=== PATIENT | male | born 1935 | race Caucasian/White ===

== ENCOUNTER 2018-12-06 13:29 | Observation (INO) | payer MEDICARE, OTHER ==
[2018-12-06] MEDS ORDERED: ASPIRIN 81 MG TABLET, CHEWABLE PO ONE (14:27)
--- NOTE | 2018-12-06 14:28 | ER Document Report ---
ED Medical Screen (RME) - General Chief Complaint: Chest Pain Stated Complaint: CHEST PAIN Time Seen by Provider: 12/06/18 14:23 Primary Care Provider: TONI BOYCE NP-C [Primary Care Provider] - Follow up as needed Notes: Chief complaint: Chest pain History of complain:( obtained from----patient) 83 years old male with a history of COPD on home oxygen at nighttime, woke up this morning with sharp substernal chest pain since then the pain is persistent but the intensity has decreased. The pain was not radiating to the left arm denies any numbness tingling sensation. Denies any nausea or vomiting. Currently feeling tightness in the chest. PHYSICAL EXAMINATION: GENERAL: Well-appearing, well-nourished and in no acute distress. HEAD: Atraumatic, normocephalic. EYES: Pupils equal round and reactive to light, extraocular movements intact, conjunctiva are normal. ENT: Nares patent, oropharynx clear without exudates. Moist mucous membranes. NECK: Normal range of motion, supple without lymphadenopathy LUNGS: Breath sounds clear to auscultation bilaterally and equal. No wheezes rales or rhonchi. HEART: Regular rate and rhythm without murmurs Dictation was performed using [employer] voice recognition software TRAVEL OUTSIDE OF THE [place] IN LAST 30 DAYS: No - Related Data Allergies/Adverse Reactions: Penicillins Allergy (Verified 12/06/18 13:31) tongue swells Past Medical History - Past Medical History Cardiac Medical History: Reports: Hx Hypertension Denies: Hx Heart Attack Pulmonary Medical History: Reports: Hx Asthma - copd Neurological Medical History: Denies: Hx Cerebrovascular Accident, Hx Seizures GI Medical History: Denies: Hx Hepatitis, Hx Hiatal Hernia, Hx Ulcer Infectious Medical History: Denies: Hx Hepatitis Past Surgical History: Reports: Hx Open Heart Surgery - monitor implanted to check for afib. Denies: Hx Pacemaker Physical Exam - Vital signs Vitals: Temp Pulse Resp BP Pulse Ox 99.9 F 104 H 20 115/63 92 12/06/18 13:47 12/06/18 13:47 12/06/18 13:47 12/06/18 13:47 12/06/18 13:47 Course - Vital Signs Vital signs: Temp Pulse Resp BP Pulse Ox 99.9 F 104 H 20 115/63 92 12/06/18 13:47 12/06/18 13:47 12/06/18 13:47 12/06/18 13:47 12/06/18 13:47 Doctor's Discharge - Discharge Referrals: TONI BOYCE NP-C [Primary Care Provider] - Follow up as needed
[2018-12-06 15:02] LABS: ABSOLUTE EOSINOPHILS # (AUTO) 0.2 10^3/uL (0.0-0.6); ABSOLUTE LYMPHOCYTES (AUTO) 0.6 10^3/uL (0.5-4.7); ABSOLUTE MONOCYTES (AUTO) 0.7 10^3/uL (0.1-1.4); ABSOLUTE NEUT (AUTO) 4.3 10^3/uL (1.7-8.2); BASOPHILS % (AUTO) 0.7 % (0-2); EOSINOPHILS % (AUTO) 3.9 % (0-6); HEMOGLOBIN 15.7 g/dL (13.5-17.0); LYMPHOCYTES % (AUTO) 9.8 % (13-45); MEAN CORPUSCULAR HEMOGLOBIN 30.5 pg (27.0-33.4); MEAN CORPUSCULAR HGB CONC 34.2 g/dL (32.0-36.0); MEAN CORPUSCULAR VOLUME 89 fl (80-97); MONOCYTES % (AUTO) 12.6 % (3-13); PLATELET COUNT 245 10^3/uL (150-450); RED BLOOD COUNT 5.15 10^6/uL (4.35-5.55); RED CELL DISTRIBUTION WIDTH 14.5 % (11.5-14.0); TOTAL CELLS COUNTED % (AUTO) 100 %; WHITE BLOOD COUNT 5.9 10^3/uL (4.0-10.5)
--- NOTE | 2018-12-06 15:17 | RADIOLOGY REPORT (SQ) ---
EXAM DESCRIPTION: CHEST SINGLE VIEW COMPLETED DATE/TIME: 12/06/2018 3:09 pm REASON FOR STUDY: Chest pain COMPARISON: Chest films 02/17/2011 EXAM PARAMETERS: NUMBER OF VIEWS: One view. TECHNIQUE: Single frontal radiographic view of the chest acquired. RADIATION DOSE: NA LIMITATIONS: None. FINDINGS: LUNGS AND PLEURA: Olena lines at both lung bases worrisome for fluid overload or intersti tial pulmonary edema. Upper lobes are hyperlucent from obstructive disease. No dense consolidation worrisome for pneumonia. No pleural effusion or pneumothorax. MEDIASTINUM AND HILAR STRUCTURES: No masses. Contour normal. HEART AND VASCULAR STRUCTURES: Heart normal in size. Normal vasculature. BONES: No acute findings. HARDWARE: Implanted cardiac monitoring device over the anterior left chest OTHER: No other significant finding. IMPRESSION: Olena lines at both lung bases, worrisome for fluid overload or congestive failure TECHNICAL DOCUMENTATION: JOB ID: [id number] [employer]- All Rights Reserved Reading location - IP/workstation name: [email or web address]
[2018-12-06 15:19] LABS: ALANINE AMINOTRANSFERASE 33 U/L (21-72); ALBUMIN 4.6 g/dL (3.5-5.0); ALKALINE PHOSPHATASE 121 U/L (38-126); ANION GAP 10 (5-19); ASPARTATE AMINO TRANSFERASE 26 U/L (17-59); BILIRUBIN,DIRECT 0.1 mg/dL (0.0-0.4); BILIRUBIN,TOTAL 0.9 mg/dL (0.2-1.3); BLOOD UREA NITROGEN 17 mg/dL (7-20); CALCIUM 9.8 mg/dL (8.4-10.2); CARBON DIOXIDE 30 mmol/L (22-30); CHLORIDE 103 mmol/L (98-107); CREATINE KINASE 73 U/L (55-170); GLUCOSE 102 mg/dL (75-110); POTASSIUM 4.9 mmol/L (3.6-5.0); SODIUM 142.8 mmol/L (137-145); TOTAL PROTEIN 7.7 g/dL (6.3-8.2)
[2018-12-06 15:49] LABS: CREATINE KINASE MB 1.58 ng/mL (<4.55); TROPONIN I < 0.012 ng/mL
--- NOTE | 2018-12-06 17:10 | ER Document Report ---
ED General - General Chief Complaint: Chest Pain Stated Complaint: CHEST PAIN Time Seen by Provider: 12/06/18 14:23 Primary Care Provider: TONI BOYCE NP-C [NO LOCAL MD] - Follow up as needed Notes: Patient is a 83-year-old male who presents emergency department with a chief complaint of chest pain. He states his chest pain started at 1:00 in the morning. The pain is in the center of his chest and describes it as a tightness. He has had an associated cough for the past few days. He went to urgent care and was brought here to the emergency department for further evaluation. He has a past medical history of COPD, GERD, congestive heart failure, hyperlipidemia, and CVA. Has been 2-3 years since his last stress test and that stress test was normal at the time. He also has an implanted monitor in his left chest to check for atrial fibrillation from a few years ago. He is on Prilosec, Lasix, Lipitor, Plavix, Anoro, Flovent, and home oxygen 2 L. TRAVEL OUTSIDE OF THE [place] IN LAST 30 DAYS: No - Related Data Allergies/Adverse Reactions: Penicillins Allergy (Verified 12/06/18 13:31) tongue swells Past Medical History - Social History Smoking Status: Former Smoker Frequency of alcohol use: None Drug Abuse: None Family History: Reviewed & Not Pertinent Patient has suicidal ideation: No Patient has homicidal ideation: No - Past Medical History Cardiac Medical History: Reports: Hx Hypertension Denies: Hx Heart Attack Pulmonary Medical History: Reports: Hx Asthma - copd, Hx COPD Neurological Medical History: Denies: Hx Cerebrovascular Accident, Hx Seizures Endocrine Medical History: Reports: Hx Diabetes Mellitus Type 2 - diet- controlled Renal/ Medical History: Denies: Hx Peritoneal Dialysis GI Medical History: Denies: Hx Hepatitis, Hx Hiatal Hernia, Hx Ulcer Infectious Medical History: Denies: Hx Hepatitis Past Surgical History: Reports: Hx Open Heart Surgery - monitor implanted to check for afib, Hx Tonsillectomy. Denies: Hx Pacemaker Review of Systems - Review of Systems Notes: REVIEW OF SYSTEMS: CONSTITUTIONAL : Denies recent illness. Denies recent unintentional weight loss. Denies fever, chills, or sweats. EENT: Denies eye, ear, throat, or mouth pain, discharge, or symptoms. Denies nasal or sinus congestion. CARDIOVASCULAR: See HPI RESPIRATORY: Denies shortness of breath, cough, congestion, difficulty breathing, or wheezing. GASTROINTESTINAL: Denies nausea, vomiting, and diarrhea. Denies abdominal pain. Denies constipation. GENITOURINARY: Denies difficulty urinating, burning, blood in urine, urgency or frequency. MUSCULOSKELETAL: Denies neck and back pain. Denies joint pain or swelling. SKIN: Denies rash, itchiness, or lesions HEMATOLOGIC : Denies easy bruising or bleeding. LYMPHATIC: Denies swollen, painful, enlarged glands. NEUROLOGICAL: Denies no numbness or tingling denies weakness. Denies headache. Denies altered mental status. Denies alteration in speech. PSYCHIATRIC: Denies stress, anxiety, alteration in sleep patterns, or depression. All other systems reviewed and negative. Physical Exam - Vital signs Vitals: Temp Pulse Resp BP Pulse Ox 99.9 F 104 H 20 115/63 92 12/06/18 13:47 12/06/18 13:47 12/06/18 13:47 12/06/18 13:47 12/06/18 13:47 - Notes Notes: PHYSICAL EXAMINATION: GENERAL: Appears well, healthy, well-nourished, no acute distress. HEAD: Normocephalic, atraumatic. EYES: PERRL, conjunctiva normal, all extraocular movements intact, sclera nonicteric ENT: Moist mucous membranes. NECK: Supple, no noticeable swelling, redness, rash. Normal range of motion. LUNGS: Equal breath sounds bilaterally and clear to auscultation. No wheezes rales or rhonchi. CARDIOVASCULAR: S1-S2, regular rate, regular rhythm. Radial pulses 2+, normal. ABDOMEN: Normoactive bowel sounds. Soft, nontender, no guarding, no rebound tenderness, and no masses palpated. EXTREMITIES: Normal strength and range of motion, no pitting or edema. No cyanosis. NEUROLOGICAL: Moves all extremities upon command. Strength 5/5 in all extremities. PSYCH: Normal mood, normal affect. SKIN: Warm, dry. No rash, lesions, ulcerations noted. Normal skin turgor. Course - Re-evaluation Re-evalutation: Differential diagnosis for the patient's chest pain includes ischemic chest pain (STEMI, NSTEMI, or unstable angina), pulmonary embolism, aortic dissection, pericarditis, chest wall pain. HEART Score: History:1 EK Age:2 Risk Factors:2 Troponin:0 Total: 5 12/06/18 17:20 Since patient does have crackles in bilateral bases, he will be given Lasix 10 mg IV. His labs are mostly unremarkable, except her his creatinine is 1.32, which is a mild increase from his normal. He also does show some pulmonary edema in bilateral lung robertson. The patient's heart score is a 5. I will also call Dr. Coates to admit the patient for a full cardiac workup. 12/06/18 18:[address] Coates and the patient will be admitted under the hospitalist service to telemetry. - Vital Signs Vital signs: Temp Pulse Resp BP Pulse Ox 99.9 F 104 H 20 115/63 96 12/06/18 13:47 12/06/18 13:47 12/06/18 17:03 12/06/18 13:47 12/06/18 17:03 - Laboratory Result Diagrams: 12/06/18 14:50 12/06/18 14:50 Laboratory results interpreted by me: 12/06/18 12/06/18 14:50 14:50 RDW 14.5 H Lymphocytes % 9.8 L Creatinine 1.32 H Est GFR (Non-Af Amer) 52 L - EKG Interpretation by Me Additional EKG results interpreted by me: 12/06/18 Sinus rhythm. Rate 87. ND 144; QRS 80; QT 312; QTC 376. Premature atrial contraction noted. Discharge - Discharge Clinical Impression: Pulmonary edema Qualifiers: Chronicity: acute Qualified Code(s): J81.0 - Acute pulmonary edema Chest pain Qualifiers: Chest pain type: other chest pain Qualified Code(s): R07.89 - Other chest pain Condition: Fair Disposition: ADMITTED INPATIENT Admitting Provider: Hospitalist Unit Admitted: Telemetry Referrals: TONI BOCYE NP-C [NO LOCAL MD] - Follow up as needed
[2018-12-06] MEDS ORDERED: FUROSEMIDE INJ/PF 20 MG/2 ML SDV IV ONE (17:17)
[2018-12-06] MEDS ORDERED: NITROGLYCERIN 0.4 MG/TAB 25 TAB/BOTTLE SL PRN (18:31)
[2018-12-06] MEDS ORDERED: (PENDING PHARMACY ID) (Clonazepam [Klonopin] 0.5 MG) PO PRN (18:32)
--- NOTE | 2018-12-06 19:03 | PDOC H&P ---
History of Present Illness Admission Date/PCP: 12/06/18 18:17 CASEY LOVING, [employer] CONSULTANT-C Patient complains of: chest pain History of Present Illness: SOCO RIBEIRO is a 83 year old male with a PMH of DM 2, hyperlipidemia, hypertension, and COPD on 2 lpm who presented with chest pain. Patient says he woke up at 1 AM earlier and had chest tightness, midsternal, 2- 3/10. nonradiating which lasted for 30 mins. He has chronic SOB from his COPD and denies acute worsening of his SOB. Denies dizziness, fever or chills. He is currently chest pain free and is comfortable. He is saturating well on his home O2 requirement. Past Medical History Cardiac Medical History: Reports: Hypertension Denies: Myocardial Infarction Pulmonary Medical History: Reports: Asthma - copd, Chronic Obstructive Pulmonary Disease (COPD) Neurological Medical History: Denies: Seizures Endocrine Medical History: Reports: Diabetes Mellitus Type 2 - diet-controlled GI Medical History: Denies: Hepatitis, Hiatal Hernia Hematology: Denies: Anemia, Sickle Cell Disease Past Surgical History Past Surgical History: Reports: Tonsillectomy Denies: Pacemaker Social History Smoking Status: Former Smoker Family History Family History: Reviewed & Not Pertinent Parental Family History Reviewed: Yes - dad had AL at 51 Children Family History Reviewed: No Sibling(s) Family History Reviewed.: No Medication/Allergy Home Medications: Atorvastatin Calcium [Lipitor 80 mg Tablet] 80 mg PO QHS 02/12/16 Carvedilol [Coreg 12.5 mg Tablet] 12.5 mg PO Q12 02/12/16 Clonazepam [Klonopin] 0.5 mg PO DAILY PRN 02/12/16 Clopidogrel Bisulfate [Plavix 75 mg Tablet] 75 mg PO DAILY 02/12/16 Furosemide [Lasix 40 mg Tablet] 40 mg PO QAM 02/12/16 Glimepiride [Amaryl 1 mg Tablet] 1 mg PO QAM 02/12/16 Omeprazole [Prilosec] 20 mg PO DAILY 02/12/16 Ramipril [Altace 10 mg Capsule] 1 cap PO DAILY 02/12/16 Trazodone HCl [Desyrel 50 mg Tablet] 25 mg PO QHS 02/12/16 Allergies/Adverse Reactions: Penicillins Allergy (Verified 12/06/18 13:31) tongue swells Review of Systems All systems: reviewed and no additional remarkable complaints except as stated - as mentioned in HPI Physical Exam Vital Signs: Temp Pulse Resp BP Pulse Ox 99.9 F 104 H 20 115/63 96 12/06/18 13:47 12/06/18 13:47 12/06/18 17:03 12/06/18 13:47 12/06/18 17:03 Intake & Output 12/05/18 12/06/18 12/07/18 06:59 06:59 06:59 Weight 179 lb 14.355 oz General appearance: PRESENT: no acute distress, well-developed, well-nourished Head exam: PRESENT: atraumatic, normocephalic Eye exam: PRESENT: conjunctiva pink, EOMI, PERRLA. ABSENT: scleral icterus Ear exam: PRESENT: normal external ear exam Mouth exam: PRESENT: moist, tongue midline Neck exam: ABSENT: carotid bruit, JVD, lymphadenopathy, thyromegaly Respiratory exam: PRESENT: clear to auscultation renuka, rales - mild rales on the base. ABSENT: rhonchi, wheezes Cardiovascular exam: PRESENT: RRR. ABSENT: diastolic murmur, rubs, systolic murmur Pulses: PRESENT: normal dorsalis pedis pul GI/Abdominal exam: PRESENT: normal bowel sounds, soft. ABSENT: distended, guarding, mass, organolmegaly, rebound, tenderness Rectal exam: PRESENT: deferred Neurological exam: PRESENT: alert, awake, oriented to person, oriented to place, oriented to time, oriented to situation, CN II-XII grossly intact. ABSENT: mo tor sensory deficit Results Laboratory Results: 12/06/18 14:50 12/06/18 14:50 12/06/18 12/06/18 14:50 14:50 WBC 5.9 RBC 5.15 Hgb 15.7 Hct 46.0 MCV 89 MCH 30.5 MCHC 34.2 RDW 14.5 H Plt Count 245 Seg Neutrophils % 73.0 Lymphocytes % 9.8 L Monocytes % 12.6 Eosinophils % 3.9 Basophils % 0.7 Absolute Neutrophils 4.3 Absolute Lymphocytes 0.6 Absolute Monocytes 0.7 Absolute Eosinophils 0.2 Absolute Basophils 0.0 Sodium 142.8 Potassium 4.9 Chloride 103 Carbon Dioxide 30 Anion Gap 10 BUN 17 Creatinine 1.32 H Est GFR ( Amer) > 60 Est GFR (Non-Af Amer) 52 L Glucose 102 Calcium 9.8 Total Bilirubin 0.9 AST 26 ALT 33 Alkaline Phosphatase 121 Total Protein 7.7 Albumin 4.6 12/06/18 12/06/18 12/06/18 14:50 14:50 17:15 Creatine Kinase 73 CK-MB (CK-2) 1.58 Troponin I < 0.012 NT-Pro-B Natriuret Pep 427 Impressions: Chest X-Ray 12/06/18 14:27 IMPRESSION: Olena lines at both lung bases, worrisome for fluid overload or congestive failure Assessment & Plan - Diagnosis (1) Chest pain Qualifiers: Chest pain type: other chest pain Qualified Code(s): R07.89 - Other chest pain; R07.8 - Other chest pain Is this a current diagnosis for this admission?: Yes Plan: Rule out ACS. First troponin is negative. EKG does not show acute changes. Will continue to cycle troponins and EKGs. Nitro prn. Continue aspirin, statin and Coreg.
[2018-12-06] MEDS ORDERED: CLONAZEPAM 1 MG TABLET PO PRN (19:54)
--- NOTE | 2018-12-06 22:04 | EKG REPORT ---
SEVERITY:- ABNORMAL ECG - SINUS RHYTHM MULTIPLE ATRIAL PREMATURE COMPLEXES CONSIDER POSTERIOR INFARCT : Confirmed by: Desean Gonzalez 06-Dec-2018 22:03:56
[2018-12-06] MEDS: CARVEDILOL 12.5 MG TABLET PO SCH (22:14)
[2018-12-06] MEDS: ATORVASTATIN CALCIUM 80 MG TABLET PO SCH (22:14)
[2018-12-06] MEDS: HEPARIN SOD (PORCINE) 5,000 UNIT/ML 1 ML SYRINGE SUBCUT SCH (22:15)
[2018-12-06] MEDS: TRAZODONE HCL 50 MG TABLET PO SCH (22:15)
[2018-12-06] MEDS ORDERED: IPRATROPIUM/ALBUTEROL 0.5-2.5 MG/3 ML AMPUL NEB PRN (22:19)
[2018-12-07] MEDS ORDERED: ASPIRIN 81 MG TABLET, CHEWABLE ONE (08:52)
[2018-12-07] MEDS: CARVEDILOL 12.5 MG TABLET PO SCH ×2 (08:55→21:48)
[2018-12-07] MEDS: FUROSEMIDE 40 MG TABLET PO SCH (08:55)
[2018-12-07] MEDS: HEPARIN SOD (PORCINE) 5,000 UNIT/ML 1 ML SYRINGE SUBCUT SCH ×2 (08:55→21:49)
[2018-12-07] MEDS: ASPIRIN 81 MG TABLET, CHEWABLE PO SCH (09:00)
--- NOTE | 2018-12-07 14:01 | PDOC PROGRESS REPORT ---
Subjective Progress Note for:: 12/07/18 Subjective:: This is 83 years old male patient with past medical history of stage II CKD, hypertension, hyperlipidemia, COPD, bronchial asthma and type 2 diabetes mellitus, presents with chief complaint of chest pain. Since patient has multiple risk factors for acute coronary syndrome patient admitted for observation. History set of cardiac enzymes are negative and no EKG changes are identified. Patient is going to have cardiac stress test. Reason For Visit: CHEST PAIN Physical Exam Vital Signs: Temp Pulse Resp BP Pulse Ox 98.0 F 75 20 109/61 94 12/07/18 12:12 12/07/18 12:12 12/07/18 12:12 12/07/18 12:12 12/07/18 12:00 Pulse Oximeter Continuous Start: 12/06/18 22:29 Freq: RTQ4 Status: Active Protocol: Document 12/07/18 12:00 JDR (Rec: 12/07/18 12:32 [id number]) Pulse Oximetry Assessment Oxygen Saturation (92-100) 94 Oxygen Delivery Method Room Air Fraction of Inspired Oxygen (FIO2) 21 Equipment Usage Equipment in Use Continuous SpO2 Machine # 2 Intake & Output 12/06/18 12/07/18 12/08/18 06:59 06:59 06:59 Intake Total 320 Balance 320 Weight 77.2 kg General appearance: PRESENT: no acute distress Head exam: PRESENT: atraumatic Eye exam: PRESENT: conjunctiva pink Neck exam: ABSENT: carotid bruit, JVD, lymphadenopathy, thyromegaly Respiratory exam: PRESENT: wheezes Cardiovascular exam: PRESENT: RRR. ABSENT: diastolic murmur, rubs, systolic murmur GI/Abdominal exam: PRESENT: normal bowel sounds, soft. ABSENT: distended, guarding, mass, organolmegaly, rebound, tenderness Neurological exam: PRESENT: alert, awake, oriented to time, oriented to situation Results Laboratory Results: 12/06/18 14:50 12/06/18 14:50 12/06/18 12/06/18 14:50 14:50 WBC 5.9 RBC 5.15 Hgb 15.7 Hct 46.0 MCV 89 MCH 30.5 MCHC 34.2 RDW 14.5 H Plt Count 245 Seg Neutrophils % 73.0 Lymphocytes % 9.8 L Monocytes % 12.6 Eosinophils % 3.9 Basophils % 0.7 Absolute Neutrophils 4.3 Absolute Lymphocytes 0.6 Absolute Monocytes 0.7 Absolute Eosinophils 0.2 Absolute Basophils 0.0 Sodium 142.8 Potassium 4.9 Chloride 103 Carbon Dioxide 30 Anion Gap 10 BUN 17 Creatinine 1.32 H Est GFR ( Amer) > 60 Est GFR (Non-Af Amer) 52 L Glucose 102 Calcium 9.8 Total Bilirubin 0.9 AST 26 ALT 33 Alkaline Phosphatase 121 Total Protein 7.7 Albumin 4.6 12/06/18 12/06/18 12/06/18 14:50 14:50 17:15 Creatine Kinase 73 CK-MB (CK-2) 1.58 Troponin I < 0.012 NT-Pro-B Natriuret Pep 427 12/06/18 12/07/18 18:33 00:24 Creatine Kinase CK-MB (CK-2) Troponin I < 0.012 < 0.012 NT-Pro-B Natriuret Pep Impressions: Chest X-Ray 12/06/18 14:27 IMPRESSION: Olena lines at both lung bases, worrisome for fluid overload or congestive failure Assessment & Plan - Diagnosis (1) Chest pain Qualifiers: Chest pain type: other chest pain Qualified Code(s): R07.89 - Other chest pain; R07.8 - Other chest pain Is this a current diagnosis for this admission?: Yes Plan: Rule out acute coronary syndrome. 3 sets of cardiac enzymes are negative, no EKG changes. Cardiac stress test. (2) Stage II CKD Is this a current diagnosis for this admission?: Yes Plan: Avoid nephrotoxic agents. (3) COPD (chronic obstructive pulmonary disease) Is this a current diagnosis for this admission?: Yes Plan: As needed bronchodilators (4) Hypertension Qualifiers: Hypertension type: essential hypertension Qualified Code(s): I10 - Essential (primary) hypertension Is this a current diagnosis for this admission?: Yes Plan: Continue home medications
[2018-12-07] MEDS ORDERED: GUAIFENESIN 600 MG TABLET.SA PO ONE (14:03)
[2018-12-07] MEDS ORDERED: ALPRAZOLAM 0.5 MG TABLET PO PRN (18:31)
[2018-12-07] MEDS: IPRATROPIUM/ALBUTEROL 0.5-2.5 MG/3 ML AMPUL NEB SCH (21:13)
[2018-12-07] MEDS: ATORVASTATIN CALCIUM 80 MG TABLET PO SCH (21:48)
[2018-12-07] MEDS: GUAIFENESIN 600 MG TABLET.SA PO SCH (21:48)
[2018-12-07] MEDS: TRAZODONE HCL 50 MG TABLET PO SCH (21:48)
[2018-12-08] MEDS: IPRATROPIUM/ALBUTEROL 0.5-2.5 MG/3 ML AMPUL NEB SCH ×4 (01:46→19:43)
[2018-12-08] MEDS: FUROSEMIDE 40 MG TABLET PO SCH (09:02)
[2018-12-08] MEDS: ASPIRIN 81 MG TABLET, CHEWABLE PO SCH (09:02)
[2018-12-08] MEDS: HEPARIN SOD (PORCINE) 5,000 UNIT/ML 1 ML SYRINGE SUBCUT SCH ×2 (09:02→22:37)
[2018-12-08] MEDS: CARVEDILOL 12.5 MG TABLET PO SCH ×2 (09:03→22:36)
[2018-12-08] MEDS: GUAIFENESIN 600 MG TABLET.SA PO SCH ×2 (09:03→22:36)
[2018-12-08] MEDS ORDERED: METHYLPREDNISOLONE INJ 40 MG/1 ML SDV IV ONE (13:00)
--- NOTE | 2018-12-08 13:24 | PDOC PROGRESS REPORT ---
Subjective Progress Note for:: 12/08/18 Subjective:: Patient is seen resting in bed. He is awake, alert and oriented x 3. He states he does not feel well. He has continue to have a cough and chest tightness when he breaths. He has a low grade fever at the present time as well. He denies any shortness of breath or dyspnea at rest. He denies any nausea, vomiting or abdominal pain. He does not have much of an appetite. He denies any dysuria or diarrhea. He denies any significant arthralgias or myalgias. Reason For Visit: CHEST PAIN Physical Exam Vital Signs: Temp Pulse Resp BP Pulse Ox 99.1 F 62 17 104/51 L 96 12/08/18 11:33 12/08/18 11:33 12/08/18 11:33 12/08/18 11:33 12/08/18 11:33 Pulse Oximeter Continuous Start: 12/06/18 22:29 Freq: RTQ4 Status: Active Protocol: Document 12/08/18 08:29 [facility] [place] (Rec: 12/08/18 08:38 [facility] [place] [id number]) Pulse Oximetry Assessment Oxygen Saturation (92-100) 97 Oxygen Flow Rate (L/min) 2 Oxygen Delivery Method Nasal Cannula Fraction of Inspired Oxygen (FIO2) 28 Equipment Usage Equipment in Use Continuous SpO2 Machine # N 2 Intake & Output 12/07/18 12/08/18 12/09/18 06:59 06:59 06:59 Intake Total 320 720 503 Balance 320 720 503 Weight 77.2 kg 77.8 kg General appearance: PRESENT: no acute distress, well-developed, well-nourished Head exam: PRESENT: atraumatic, normocephalic Eye exam: PRESENT: conjunctiva pink, EOMI, PERRLA. ABSENT: scleral icterus Ear exam: PRESENT: normal external ear exam Mouth exam: PRESENT: moist, tongue midline Neck exam: ABSENT: carotid bruit, JVD, lymphadenopathy, thyromegaly Respiratory exam: PRESENT: decreased breath sounds, rhonchi, symmetrical, unlabored Cardiovascular exam: PRESENT: RRR. ABSENT: diastolic murmur, rubs, systolic murmur Pulses: PRESENT: normal dorsalis pedis pul Vascular exam: PRESENT: normal capillary refill GI/Abdominal exam: PRESENT: normal bowel sounds, soft. ABSENT: distended, g uarding, mass, organolmegaly, rebound, tenderness Rectal exam: PRESENT: deferred Extremities exam: PRESENT: full ROM. ABSENT: calf tenderness, clubbing, pedal edema Neurological exam: PRESENT: alert, awake, oriented to person, oriented to place, oriented to time, oriented to situation, CN II-XII grossly intact. ABSENT: mo tor sensory deficit Psychiatric exam: PRESENT: appropriate affect, normal mood. ABSENT: homicidal ideation, suicidal ideation Skin exam: PRESENT: dry, intact, warm. ABSENT: cyanosis, rash Results Laboratory Results: 12/06/18 14:50 12/06/18 14:50 12/06/18 12/06/18 12/06/18 14:50 14:50 17:15 Creatine Kinase 73 CK-MB (CK-2) 1.58 Troponin I < 0.012 NT-Pro-B Natriuret Pep 427 12/06/18 12/07/18 18:33 00:24 Creatine Kinase CK-MB (CK-2) Troponin I < 0.012 < 0.012 NT-Pro-B Natriuret Pep Impressions: Chest X-Ray 12/06/18 14:27 IMPRESSION: Olena lines at both lung bases, worrisome for fluid overload or congestive failure Assessment & Plan - Diagnosis (1) Chest pain Qualifiers: Chest pain type: chest pain on breathing Qualified Code(s): R07.1 - Chest pain on breathing; R07.81 - Pleurodynia Is this a current diagnosis for this admission?: Yes Plan: Serial troponins are all negative. No current EKG changes. His pain occurs more with deep inspiration. He also has a nonproductive cough. He is scheduled for nuclear stress test on Monday. He appears to have some upper respiratory symptoms exacerbating his COPD. We will start him on IV Solu-Medrol and continue nebulizers. Obtain sputum culture he has low-grade fever today. If symptoms worsen we can start him on antibiotics for possible COPD exacerbation (2) COPD (chronic obstructive pulmonary disease) Is this a current diagnosis for this admission?: Yes Plan: Continue home inhalers and nebulizer treatments. He is getting Mucinex. We will add IV Solu-Medrol as above. (3) Stage II CKD Is this a current diagnosis for this admission?: Yes Plan: Presently stable. Avoid nephrotoxic medications and dosages (4) Hypertension Qualifiers: Hypertension type: essential hypertension Qualified Code(s): I10 - Essential (primary) hypertension Is this a current diagnosis for this admission?: Yes Plan: Presently normotensive on current medications. - Time Time Spent with patient: 25-34 minutes Total Critical Time (Minutes): 25 Medications reviewed and adjusted accordingly: Yes Anticipated discharge: Home Within: within 48 hours
[2018-12-08] MEDS: BENZOCAINE/MENTHOL SORE THROAT LOZENGE BUCCAL PRN (20:23)
[2018-12-08] MEDS ORDERED: DOXYCYCLINE HYCLATE INJ 100 MG VIAL ONE (21:40)
[2018-12-08] MEDS ORDERED: DOXYCYCLINE HYCLATE 100 MG TABLET PO ONE (22:32)
[2018-12-08] MEDS: TRAZODONE HCL 50 MG TABLET PO SCH (22:35)
[2018-12-08] MEDS: ATORVASTATIN CALCIUM 80 MG TABLET PO SCH (22:35)
[2018-12-08] MEDS: DOXYCYCLINE HYCLATE 100 MG TABLET PO SCH (22:35)
[2018-12-08] MEDS: METHYLPREDNISOLONE INJ 40 MG/1 ML SDV IV SCH (22:36)
[2018-12-09] MEDS: IPRATROPIUM/ALBUTEROL 0.5-2.5 MG/3 ML AMPUL NEB SCH ×2 (01:06→08:45)
[2018-12-09] MEDS: HEPARIN SOD (PORCINE) 5,000 UNIT/ML 1 ML SYRINGE SUBCUT SCH (09:27)
[2018-12-09] MEDS: METHYLPREDNISOLONE INJ 40 MG/1 ML SDV IV SCH (09:27)
[2018-12-09] MEDS: FUROSEMIDE 40 MG TABLET PO SCH (09:27)
[2018-12-09] MEDS: CARVEDILOL 12.5 MG TABLET PO SCH (09:28)
[2018-12-09] MEDS: GUAIFENESIN 600 MG TABLET.SA PO SCH (09:28)
[2018-12-09] MEDS: ASPIRIN 81 MG TABLET, CHEWABLE PO SCH (09:28)
[2018-12-09] MEDS: DOXYCYCLINE HYCLATE 100 MG TABLET PO SCH (09:29)
[2018-12-09] MEDS: BENZOCAINE/MENTHOL SORE THROAT LOZENGE BUCCAL PRN (11:18)
[2018-12-09 13:14] VITALS: BP 125/75
--- NOTE | 2018-12-09 14:05 | PDOC DISCHARGE SUMMARY ---
General - Admit/Disc Date/PCP Admission Date/Primary Care Provider: 12/06/18 18:17 CASEY Ross LOVING, BREWING DIRECTOR-C Discharge Date: 12/09/18 - Discharge Diagnosis (1) Chest pain Is this a current diagnosis for this admission?: Yes Summary: Troponins x3 were all< 0.012. His pain was extremely atypical for for cardiac. Initially he agreed to a Lexiscan stress test which was scheduled for tomorrow. He then began having low-grade fever and congested cough. His symptoms appear more to be related to bronchitis or upper respiratory infection exacerbating his COPD. Started on on prednisone therapy and oral doxycycline. He feels much improved today. He has decided today he does not want to do the stress test. He would like to go home. His and daughters agree. We will therefore ca ncel the Lexiscan stress test and discharge him home on oral prednisone therapy and doxycycline to complete a 10-day course. He will follow-up with his primary care provider should he have a recurrence of symptoms. (2) COPD (chronic obstructive pulmonary disease) Is this a current diagnosis for this admission?: Yes Summary: Continue home oxygen. Continue nebulizer treatments and inhalers as directed. He was given prescription for doxycycline 100 mg twice daily for a total of 10 days. Prednisone 40 mg daily for the next 5 days. He can use Mucinex twice daily as directed. He will follow-up with his primary care provider if his symptoms do not improve. (3) Stage II CKD Is this a current diagnosis for this admission?: Yes Summary: Stable (4) Hypertension Is this a current diagnosis for this admission?: Yes Summary: He is presently normotensive on current medications. - Additional Information Resuscitation Status: Full Code Discharge Diet: As Tolerated Discharge Activity: Activity As Tolerated, Balance Activity w/Rest Prescriptions: Doxycycline Hyclate [Vibramycin] 100 mg PO BID #17 capsule Prednisone [Deltasone 20 mg Tablet] 40 mg PO DAILY 5 Days #10 tablet Home Medications: Atorvastatin Calcium [Lipitor 80 mg Tablet] 80 mg PO QHS 02/12/16 Carvedilol [Coreg 12.5 mg Tablet] 12.5 mg PO Q12 02/12/16 Clopidogrel Bisulfate [Plavix 75 mg Tablet] 75 mg PO DAILY 02/12/16 Furosemide [Lasix 40 mg Tablet] 40 mg PO QAM 05/06/16 Trazodone HCl [Desyrel 50 mg Tablet] 50 mg PO QHS 02/12/16 Albuterol Sulfate [Proair HFA Inhalation Aerosol 8.5 gm MDI] 2 puff IH Q4HP PRN 12/06/18 Benzonatate [Tessalon Perle 100 mg Capsule] 100 mg PO Q8HP PRN 12/06/18 Guaifenesin [Mucinex] 1,200 mg PO Q12HP PRN 12/06/18 Losartan Potassium [Cozaar 50 mg Tablet] 50 mg PO DAILY 12/06/18 Magnesium Oxide [Mag-Ox 400 mg Tablet] 400 mg PO DAILY 12/06/18 Doxycycline Hyclate [Vibramycin] 100 mg PO BID #17 capsule 12/09/18 Guaifenesin [Mucinex Sr 600 mg Tablet.sa] 600 mg PO Q12 tablet.sa 12/09/18 Prednisone [Deltasone 20 mg Tablet] 40 mg PO DAILY 5 Days #10 tablet 12/09/18 History of Present Illness History of Present Illness: SOCO RIBEIRO is a 83 year old male Hospital Course Hospital Course: SOCO RIBEIRO is a 83 year old male with a PMH of DM 2, hyperlipidemia, hypertension, and COPD on 2 lpm who presented with chest pain. Patient says he woke up at 1 AM earlier and had chest tightness, midsternal, 2- 3/10. nonradiating which lasted for 30 mins. He has chronic SOB from his COPD and denies acute worsening of his SOB. Denies dizziness, fever or chills. He is currently chest pain free and is comfortable. He is saturating well on his home O2 requirement. He was admitted to the medical floor on telemetry. Troponins x3 were obtained every 6 hours. These were all less than 0.012. Following day he began having a nonproductive cough. He noticed tightness in his chest when he attempted to take a deep breath. He developed a low-grade fever as well overnight. On hospital day #2 he has some expiratory wheezing. He was started on IV Solu-Medrol and oral doxycycline for COPD exacerbation. He feels much improved today. He initially had agreed to stay for a Lexiscan stress test on Monday. He has decided today he does not want to do this. He would like to go home. His and 2 daughters agree with him. He can follow-up with his primary care provider for outpatient stress test if he is so inclined to do so. He feels his symptoms are due to his upper respiratory infection. Pain was extremely atypical for cardiac in origin. He was discharged home with his family in good condition Physical Exam Vital Signs: Temp Pulse Resp BP Pulse Ox 97.9 F 61 18 125/75 96 12/09/18 13:07 12/09/18 13:07 12/09/18 13:07 12/09/18 13:07 12/09/18 13:07 Pulse Oximeter Continuous Start: 12/06/18 22:29 Freq: RTQ4 Status: Active Protocol: Document 12/09/18 12:00 LDA (Rec: 12/09/18 12:08 LDA [id number]) Pulse Oximetry Assessment Oxygen Saturation (92-100) 96 Oxygen Flow Rate (L/min) 2 Oxygen Delivery Method Nasal Cannula Fraction of Inspired Oxygen (FIO2) 28 Equipment Usage Equipment in Use Continuous SpO2 Machine # 2 Intake & Output 12/08/18 12/09/18 12/10/18 06:59 06:59 06:59 Intake Total 720 1108 Output Total 650 Balance 720 458 Weight 77.8 kg 81.2 kg General appearance: PRESENT: no acute distress, well-developed, well-nourished Head exam: PRESENT: atraumatic, normocephalic Eye exam: PRESENT: conjunctiva pink, EOMI, PERRLA. ABSENT: scleral icterus Ear exam: PRESENT: normal external ear exam Mouth exam: PRESENT: moist, tongue midline Neck exam: ABSENT: carotid bruit, JVD, lymphadenopathy, thyromegaly Respiratory exam: PRESENT: clear to auscultation renuka, decreased breath sounds, symmetrical, unlabored, other - on home oxygen at 2l/min. ABSENT: rales, rhonchi, wheezes Cardiovascular exam: PRESENT: RRR. ABSENT: diastolic murmur, rubs, systolic murmur Pulses: PRESENT: normal dorsalis pedis pul Vascular exam: PRESENT: normal capillary refill GI/Abdominal exam: PRESENT: normal bowel sounds, soft. ABSENT: distended, guarding, mass, organolmegaly, rebound, tenderness Rectal exam: PRESENT: deferred Extremities exam: PRESENT: full ROM. ABSENT: calf tenderness, clubbing, pedal edema Neurological exam: PRESENT: alert, awake, oriented to person, oriented to place, oriented to time, oriented to situation, CN II-XII grossly intact. ABSENT: motor sensory deficit Psychiatric exam: PRESENT: appropriate affect, normal mood. ABSENT: homicidal ideation, suicidal ideation Skin exam: PRESENT: dry, intact, warm. ABSENT: cyanosis, rash Results Laboratory Results: 12/06/18 14:50 12/06/18 14:50 12/06/18 12/06/18 12/06/18 14:50 14:50 17:15 Creatine Kinase 73 CK-MB (CK-2) 1.58 Troponin I < 0.012 NT-Pro-B Natriuret Pep 427 12/06/18 12/07/18 18:33 00:24 Creatine Kinase CK-MB (CK-2) Troponin I < 0.012 < 0.012 NT-Pro-B Natriuret Pep Impressions: Chest X-Ray 12/06/18 14:27 IMPRESSION: Olena lines at both lung bases, worrisome for fluid overload or congestive failure Qualifiers - * PATIENT BEING DISCHARGED WITH ANY OF THE FOLLOWING DIAGNOSIS: No
== END 2018-12-09 14:10 | disposition home or self-care (01) ==
LOC: ER 13:29 → INTOOBSV 18:17 → EH 18:17 → 4S 20:30
PROVIDERS: ADMIT Internal Medicine; ATTEND Internal Medicine
DX: R07.89 Other chest pain (principal); J44.9 Chronic obstructive pulmonary disease, unspecified; E11.22 Type 2 diabetes mellitus with diabetic chronic kidney disease; I13.0 Hypertensive heart and chronic kidney disease with heart failure and stage 1 through stage 4 chronic kidney disease, or unspecified chronic kidney disease; N18.2 Chronic kidney disease, stage 2 (mild); I50.9 Heart failure, unspecified; R50.9 Fever, unspecified; R05 Cough; E78.5 Hyperlipidemia, unspecified; J81.0 Acute pulmonary edema; Z79.899 Other long term (current) drug therapy; Z79.02 Long term (current) use of antithrombotics/antiplatelets; Z99.81 Dependence on supplemental oxygen; Z82.49 Family history of ischemic heart disease and other diseases of the circulatory system; Z86.73 Personal history of transient ischemic attack (TIA), and cerebral infarction without residual deficits; Z87.891 Personal history of nicotine dependence
CPT/HCPCS: 93005; 99285; 96374; 36415; 82553; 82962 ×2; 82550; 85025; 80053; 84484 ×2; 83880; 71045; 93010; 94762 ×4; 94640 ×3; G0378 ×5; A9270 ×29; J1644 ×3; J1940; J2920 ×2; J3490 ×4; J7620